=== PATIENT | female | born 1995 | race Caucasian/White ===

== ENCOUNTER → 2020-08-20 16:05 | Outpatient (CLI) | payer OTHER, MEDICAID, SELFPAY ==
[2020-08-20 17:01] LABS: Absolute Lymphocyte Count 2.77 X10^3/uL (0.83-4.51); Absolute Neutrophil Count 7.4 X10^3/uL (2.0-7.7); Basophil# 0.05 X10^3/uL; Basophil% 0.4 % (0-1); Eosinophil# 0.36 X10^3/uL; Eosinophils% 3.1 % (0-5); Hematocrit 43.2 % (37-47); Hemoglobin 14.3 g/dL (12.0-15.0); Lymphocyte # 2.77 X10^3/ul (0.83-4.51); Mean Corp Hgb Conc 33.1 g/dL (32-36); Mean Corpuscular Hgb 29.9 pg (27.0-32.0); Mean Corpuscular Volume 90.2 fL (81-99); Mean Platelet Vol. 10.2 fl (6.2-12.0); Monocyte# 0.92 X10^3/uL; NRBC Flagged by Analyzer 0 % (0-5); Neutrophil # 7.41 X10^3/uL (2.7-7.7); Neutrophil % 64.2 % (47-70); Platelet Count 409 K/mm3 (150-450); RBC Distribution Width SD 42.6 fl (35.1-43.9); Red Blood Count 4.79 M/mm3 (4.2-5.4); White Blood Count 11.6 K/mm3 (4.4-11.0)
[2020-08-20 17:59] LABS: HIV - WCH Non-Reactive (Nonreactive); Hepatitis B Surface Antigen Non-Reactive (Nonreactive); Hepatitis C Antibody Non-Reactive (Nonreactive); Rubella IgG Reactive (Nonreactive); Syphilis Antibodies Non-reactive
[2020-08-22 20:10] LABS: Chlamydia By Nucleic Acid AMP Negative (Negative)
[2020-08-23 16:12] LABS: Gonococcus By Nucleic Acid AMP Negative (Negative)
[2020-08-24 08:18] LABS: HPV APTIMA, High Risk Negative (Negative); HPV Reflexed? YES, CHARGE PATIENT
== END ==
PROVIDERS: Visit Provider Obstetrics & Gynecology
DX: Z34.81 Encounter for supervision of other normal pregnancy, first trimester (principal)
CPT/HCPCS: 36415; 85025; 86703; 86762; 86780; 86803; 87086; 87088; 87186; 87340; 87491; 87591; 87624; 88175; G0145

== ENCOUNTER → 2020-12-24 16:26 | Outpatient (CLI) | payer OTHER, MEDICAID, SELFPAY ==
[2020-12-24 17:46] LABS: Hematocrit 34.1 % (37-47); Hemoglobin 11.2 g/dL (12.0-15.0); Mean Corp Hgb Conc 32.8 g/dL (32-36); Mean Corpuscular Hgb 28.8 pg (27.0-32.0); Mean Corpuscular Volume 87.7 fL (81-99); Mean Platelet Vol. 10.8 fl (6.2-12.0); Platelet Count 336 K/mm3 (150-450); RBC Distribution Width CV 12.8 % (11.6-14.6); RBC Distribution Width SD 40.5 fl (35.1-43.9); Red Blood Count 3.89 M/mm3 (4.2-5.4); White Blood Count 11.6 K/mm3 (4.4-11.0)
[2020-12-24 18:53] LABS: Glucose Challenge Gest 1H 50g 163 mg/dL (70-140)
== END ==
PROVIDERS: Visit Provider Obstetrics & Gynecology
DX: Z34.82 Encounter for supervision of other normal pregnancy, second trimester (principal)
CPT/HCPCS: 36415; 82950; 85027

== ENCOUNTER → 2020-12-27 08:41 | Outpatient (CLI) | payer OTHER, SELFPAY ==
[2020-12-27 10:31] LABS: Glucose GTT-Gestation. Fasting 79 mg/dL (<105)
[2020-12-27 11:34] LABS: Glucose GTT-Gestational 1 Hr 189 mg/dL (<190)
[2020-12-27 11:34] LABS: Glucose GTT-Gestational 2 Hr 131 mg/dL (<165)
[2020-12-27 14:28] LABS: Glucose GTT-Gestational 3 Hr 96 L (<145)
== END ==
PROVIDERS: Referring Provider Obstetrics & Gynecology; Visit Provider Obstetrics & Gynecology
DX: O24.912 Unspecified diabetes mellitus in pregnancy, second trimester (principal); Z3A.00 Weeks of gestation of pregnancy not specified
CPT/HCPCS: 36415; 82951; 82952

== ENCOUNTER 2021-03-18 16:44 | Outpatient (CLI) | payer OTHER, SELFPAY | END 2021-03-18 23:59 | disposition home or self-care (01) | PROVIDERS: Visit Provider Obstetrics & Gynecology | DX: Z36.85 Encounter for antenatal screening for Streptococcus B (principal) | CPT/HCPCS: 87081 ==

== ENCOUNTER 2021-04-01 15:33 | Outpatient (CLI) | payer OTHER, SELFPAY | END 2021-04-01 23:59 | disposition home or self-care (01) | LOC: LABSPEC 15:34 | PROVIDERS: Visit Provider Obstetrics & Gynecology | DX: Z20.822 Contact with and (suspected) exposure to COVID-19 (principal) | CPT/HCPCS: 87635; U0003; U0005 ==

== ENCOUNTER 2021-04-08 09:30 | Inpatient (IN) | payer OTHER, MEDICAID, SELFPAY ==
[2021-04-08] VITALS (17 sets, daily range): BP systolic 117–145; BP diastolic 63–96; PULSE 66–99; RESP 14–18; TEMP 36.2–36.8; O2SAT 95–100; BMI 36.2
--- NOTE | 2021-04-08 | FALS_PTH ---
PATIENT: ADRI HARRIS LOC: [facility] U#:[id number] AGE/SX: 26/F ROOM: WP005 RE04/08/[address]: Dr. Brian Cortes MD : 1995 BED: 1 DIS: 04/09/2021 SPEC #: [id number] RECD: 04/08/21 13:49 STATUS: MEME REMani #: [id number] LUCY: 04/08/21 00:[address]: Brian Cortes DEPT: SURGICAL PATHOLOGY RECD BY: Jason Watson ENTERED: 04/09/21 10:54 SP TYPE: FALL TUBES OTHR DR: No Primary Care Phys Tissues: Fallopian tube Procedures: Surgery Specimen Level II HEADER OPERATION: Tubal ligation PRE-OP DIAGNOSIS: Sterilization TISSUE SUBMITTED: Fallopian tubes, suture in right tube MICROSCOPIC DIAGNOSIS Right fallopian tube, salpingectomy: Complete segment of fallopian tube with no pathologic change. Left fallopian tube, salpingectomy: Complete segment of fallopian tube with no pathologic change. Benign paratubal cyst. AM:evi 04/10/2021 MICROSCOPIC DESCRIPTION Slides are reviewed. GROSS DESCRIPTION Received in fixative is one container labeled with the patient's name and designated bilateral fallopian tubes, suture in right tube. The specimen consists of bilateral fallopian tubes including fimbrial ends. The right fallopian tube measures 9 cm in length and 0.6 cm in diameter and the left fallopian tube measures 8.5 cm in length and 0.5 cm in diameter. Sections reveal unremarkable cut surfaces. Information Technology Technician sections are submitted in two cassettes as follows: 1 ? right fallopian tube, 2 ? left fallopian tube. / SJ:evi 04/09/2021 TC:4 CPT: 13804 x2
[2021-04-08] MEDS: Lactated Ringers 1,000 ML 999 ML IV (10:15)
[2021-04-08 10:37] LABS: Absolute Lymphocyte Count 1.74 X10^3/uL (0.83-4.51); Absolute Neutrophil Count 9.1 X10^3/uL (2.0-7.7); Basophil# 0.03 X10^3/uL; Basophil% 0.3 % (0-1); Eosinophils% 1.7 % (0-5); Hematocrit 31.5 % (37-47); Hemoglobin 10.9 g/dL (12.0-15.0); Lymphocyte # 1.74 X10^3/ul (0.83-4.51); Lymphocyte % 14.8 % (19-41); Mean Corp Hgb Conc 34.6 g/dL (32-36); Mean Corpuscular Hgb 28.5 pg (27.0-32.0); Mean Corpuscular Volume 82.5 fL (81-99); Mean Platelet Vol. 11.8 fl (6.2-12.0); Monocyte# 0.56 X10^3/uL; Monocyte% 4.8 % (0-10); NRBC Flagged by Analyzer 0 % (0-5); Neutrophil # 9.11 X10^3/uL (2.7-7.7); Neutrophil % 77.5 % (47-70); Platelet Count 318 K/mm3 (150-450); RBC Distribution Width CV 14.1 % (11.6-14.6); RBC Distribution Width SD 41.1 fl (35.1-43.9); Red Blood Count 3.82 M/mm3 (4.2-5.4); White Blood Count 11.7 K/mm3 (4.4-11.0)
[2021-04-08] MEDS: Lactated Ringers 1,000 ML 150 ML IV (11:10)
[2021-04-08] MEDS: Acetaminophen 500 MG Tablet 1000 MG PO ×2 (11:43→18:02)
--- NOTE | 2021-04-08 11:43 | PCM.HP.BLA ---
History and Physical Date of Admission: 04/08/21 Chief complaint: Repeat section bilateral tubal ligation History of present illness: 26-year-old G2, P1 at 39 weeks and 6 days with JOO: 04/09/2021 by LMP arrives for repeat section and bilateral tubal ligation. Denies headache, visual changes, chest pain, shortness of breath, nausea vomiting, right upper quadrant pain. Patient states good movement. Obstetric history: G1: 40-week primary section male 05/19/2013 G2: Current Past medical history: None Medications: vitamin Past surgical history: , left foot Allergies: Penicillin/amoxicillin Social history: Former smoker, denies alcohol and drug use Family history: Denies history DVT or PE Review of systems: Besides above pertinent positives a full review of systems was performed and found to be negative Physical exam: Vitals: Blood pressure 138/93 pulse 87 respiratory rate 16 temp 97.5 Fahrenheit SPO2 98% on room air General: Normal-appearing no acute distress HEENT: Normocephalic atraumatic no cervical of adenopathy Cardiac/respiratory: No use of accessory muscles, nonlabored breathing Abdomen: Soft, nontender, gravid Extremities: No peripheral edema normal peripheral pulses Psych: Normal affect normal demeanor nonpressured speech Labs: White blood cell count 11.7 hemoglobin 10.9 hematocrit 31.5% platelets 318. Blood type O+ antibody negative Assessment plan: 26-year-old G2, P1 at 39 weeks and 6 days arrives for repeat section bilateral tubal ligation Admit labor and delivery CEFM GBS negative Gent and Clinda Routine orders Anesthesia to see
[2021-04-08] MEDS: Sodium Citrate/Citric Acid 30 ML UDC PO (11:44)
--- NOTE | 2021-04-08 12:50 | OP.PCM_ITS ---
Details Operative Information Date of Procedure: 04/08/21 Pre-Operative Diagnosis: History of section, desires permanent sterilization Post-Operative Diagnosis: History of section, desires permanent sterilization cardiac exercise specialist #1: Clay Martin Findings Description of Procedure: Procedure: Repeat low transverse section Via Pfannenstiel incision, bilateral salpingectomy Surgeon: Brian Cortes MD Anesthesia: Spinal EBL: 700 cc Urine output: 100 cc IV fluids: 1000 cc Complications: None Specimen: Bilateral fallopian tubes Findings: Male infant in vertex position Apgars 8/9. Normal uterus, tubes, and ovaries. Consent: Patient with history of section and desires permanent sterilization in need of repeat section Via Pfannenstiel incision and bilateral tubal ligation. Patient understands the risk of the procedure include but are not limited to visceral or vascular injury, prolonged hospitalization, blood loss and need for transfusion, reoperation. Patient stated understanding and wished to proceed. All questions were answered and consent was signed. Procedure: Patient was brought back to the OR where spinal anesthesia was found to be adequate. Clindamycin and gentamicin were given for infection prophylaxis. Patient was prepared and draped in a supine position with leftward tilt. A Pfannenstiel incision was made at the skin with a scalpel. The incision was carried down to the fascia with a scalpel. The fascia was excised and extended laterally. Inferior aspect of the fascia was grasped and the underlying rectus and pyramidalis muscle were dissected off sharply. In a similar fashion the superior aspect of the fascia was grasped and the underlying rectus muscle was dissected off sharply. Rectus muscle was dissected at the midline down to the level of pubic symphysis. Preperitoneal fatty tissue was noted and peritoneum was entered bluntly. Peritoneum was extended superiorly and inferiorly with good visualization of the bladder. Bladder blade was inserted and vesicouterine peritoneum was identified. Low transverse hysterotomy was made. Hysterotomy was extended bluntly. Hand was placed into the hysterotomy incision and gentle fundal pressure was applied once the bladder blade was removed and the head was brought into the incision. Head and shoulders were delivered with ease. Cord was cut and clamped. Baby was handed off to nursing. Placenta was delivered via cord traction and fundal massage. IV oxytocin was initiated in order to facilitate uterine contractions. Uterus was exteriorized and wiped out with dry laparotomy sponges in order to remove remaining placental membranes. Uterus was closed in a continuous running fashion. Good hemostasis was noted. Right fallopian tube was identified out to the fimbriae and using a LigaSure device the mesosalpinx was cut and cauterized, right fallopian tube was sent to pathology. In a similar fashion the left fallopian tube was identified out to the fimbriae and using a LigaSure device the mesosalpinx was cut and cauterized. Good hemostasis was noted bilaterally. Uterus was placed back into the abdominal cavity and the incision was reinspected and good hemostasis was noted. Fascia was closed in a continuous running fashion with PDS suture. Subcutaneous irrigation was performed. Skin was closed in a subcuticular fashion. Good hemostasis was noted. All counts were correct x2. Patient tolerated the procedure well and was brought to recovery in stable condition.
[2021-04-08] MEDS: Oxytocin 30 units/NS 500 ml 30 UNITS/500 ML IV.SOLN 167 UNITS IV (13:10)
[2021-04-08] MEDS: Ketorolac 30 MG/ML Syringe IV ×2 (13:36→19:18)
[2021-04-08 13:50] LABS: Pathology Specimen OB SEE PATHOLOGY REPORT
[2021-04-08] MEDS: Lactated Ringers 1,000 ML 100 ML IV (16:27)
[2021-04-09 00:45] VITALS: BP 135/90; PULSE 83; RESP 16; TEMP 36.5; O2SAT 96
[2021-04-09] MEDS: Ketorolac 30 MG/ML Syringe IV ×2 (01:55→08:07)
[2021-04-09] MEDS: Acetaminophen 500 MG Tablet 1000 MG PO ×3 (01:56→15:01)
[2021-04-09] MEDS: 0.9% Saline Lock 10 ML Syringe IV ×2 (01:56→08:07)
[2021-04-09 05:00] VITALS: BP 126/81; PULSE 81; RESP 16; TEMP 36.4; O2SAT 96
[2021-04-09 05:42] LABS: Hemoglobin 9.6 g/dL (12.0-15.0); Mean Corp Hgb Conc 34.3 g/dL (32-36); Mean Corpuscular Hgb 28.2 pg (27.0-32.0); Mean Corpuscular Volume 82.1 fL (81-99); Mean Platelet Vol. 11.3 fl (6.2-12.0); Platelet Count 267 K/mm3 (150-450); RBC Distribution Width CV 13.9 % (11.6-14.6); RBC Distribution Width SD 41.1 fl (35.1-43.9); Red Blood Count 3.41 M/mm3 (4.2-5.4); White Blood Count 14.1 K/mm3 (4.4-11.0)
[2021-04-09 08:15] VITALS: BP 130/94; PULSE 83; RESP 16; TEMP 36.5; O2SAT 97
--- NOTE | 2021-04-09 09:08 | PCM.DC.SUM ---
Providers Date of Admission: 04/08/21 Primary Care Physician: No Primary Care Phys Reason For Visit: REPEAT Diagnosis Discharge Diagnosis (1) delivery delivered: Status: Acute Code(s): O82 - Encounter for delivery without indication Medications at Discharge Home Medications [id number]-[id number] 1 tab PO DAILY 04/08/21 ibuprofen 600 mg PO Q6H #30 tab 04/09/21 oxycodone 5 mg PO Q6H PRN PRN 5 Days #20 tab 04/09/21 Hospital Course Operations section Summary of Care Provided Hospital Course: 26year old admitted at 39 weeks gestatoin for scheduled repeat section with tubal sterilization. She had an uncomplicated section and bilateral salpingectomy. Her postop course was unremarkable and she was discharged to home on postop day #1. Physical Exam Narrative No complaints. Denies heavy lochia. Pain controlled. Passing flatus. Const alert, oriented x3 and no apparent distress Resp normal respiratory effort, normal air movement and clear to auscultation bilaterally Cardio regular rate, regular rhythm, S1 normal heart sound and S2 normal heart sound GI normal to inspection, nondistended, normoactive bowel sounds, soft to palpation, non-tender and non-distended GI Narrative: incisional dressing c/d/i Manual OB Exam: other lochia scant Uterus Palpation: uterus fundus firm Extremity no calf tenderness Weight / BMI Weight Weight: 89.9 kg Body Mass Index (BMI) 36.2 ABG / Lab / Microbiology Data Result Diagrams: 04/09/21 05:30 Laboratory: Laboratory Results - last 24 hr 04/08/21 10:15: WBC 11.7 H, RBC 3.82 L, Hgb 10.9 L, Hct 31.5 L, MCV 82.5, MCH 28.5, MCHC 34.6, RDW Std Deviation 41.1, RDW Coeff of Angela 14.1, Plt Count 318, MPV 11.8, Immature Gran % (Auto) 0.900, Neut % (Auto) 77.5 H, Lymph % (Auto) 14.8 L, Jackson % (Auto) 4.8, Eos % (Auto) 1.7, Baso % (Auto) 0.3, Absolute Neuts (auto) 9.1 H, Absolute Lymphs (auto) 1.74, Nucleated RBC % 0 04/08/21 10:15: Blood Type O POSITIVE, Antibody Screen NEGATIVE 04/09/21 05:30: WBC 14.1 H, RBC 3.41 L, Hgb 9.6 L, Hct 28.0 L, MCV 82.1, MCH 28.2, MCHC 34.3, RDW Std Deviation 41.1, RDW Coeff of Angela 13.9, Plt Count 267, MPV 11.3 D/C Instructions Discharge Diet: No restrictions Discharge Activity: Return to Normal Activity and May Shower May resume sexual activity in: 4-6 weeks Lifting Restrictions: 10 lb Call your doctor if you observe: Using more than 1 pad per hour, Shortness of breath, Chest pain, Calf discomfort, Uncontrolled pain and - (Persistent or severe headache) Suture Line Care: Avoid Pulling/Pushing Remove Dressing in: 4 days Cleanse incision/area with: Soap & Water Please Follow Up With: Brian Cortes MD Meaningful Use Info Meaningful Use Diagnoses (Choose all that apply): None applicable Discharge Plan Admission Admit Date/Time: 04/08/21 09:30 Primary Reason for Your Visit: section and tube removal Attending Provider: Brian Cortes Primary Care Provider: Antoine Physician,Melani Primary Discharge Orders/Prescriptions Prescriptions: New ibuprofen 600 mg Tablet 600 mg PO Q6H Qty: 30 RF: 0 oxycodone 5 mg Tablet 5 mg PO Q6H PRN PRN (Reason: Pain Score 4-10) 5 Days Qty: 20 RF: 0 Continued qlufaenm-sne-Fc-FA 1 mg Tablet 1 tab PO DAILY RF: 0 Referrals / Follow Up: Care Physician,Melani Primary [Primary Care Provider] - Disposition Disposition (needs filled in before D/C Order can be placed): Home, Self Care
[2021-04-09] MEDS: Senna/Docusate Sodium 1 Tablet PO (10:15)
[2021-04-09] MEDS: Enoxaparin 40 MG/0.4 ML Syringe SC (10:15)
[2021-04-09 11:23] VITALS: BP 125/86; PULSE 87; RESP 16; TEMP 36.6; O2SAT 97
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
[2021-04-09] MEDS: Ibuprofen 600 MG Tablet PO (15:01)
[2021-04-09 15:50] VITALS: BP 139/88; PULSE 80; RESP 18; TEMP 36.6; O2SAT 97
== END 2021-04-09 15:55 | disposition home or self-care (01) | DRG 785 ==
PROVIDERS: Admitting Provider Obstetrics & Gynecology; Visit Provider Obstetrics & Gynecology
PROC: 10D00Z1 Extraction of Products of Conception, Low, Open Approach (ICD-10-PCS; CPT 59514; principal; 2021-04-08 11:45)
DX: O34.211 Maternal care for low transverse scar from previous cesarean delivery (principal); Z30.2 Encounter for sterilization; Z37.0 Single live birth; Z3A.39 39 weeks gestation of pregnancy; Z87.891 Personal history of nicotine dependence
CPT/HCPCS: 59050; 85025; 85027; 86850; 86900; 86901; 88302; 99218; 99251; J7120; A4216; G0378; G0463